=== PATIENT | male | born 1985 | race Caucasian/White ===

== ENCOUNTER 2016-12-20 03:10 | Emergency (ER) | payer BC ==
[~2016-12-20] VITALS: Ht 180.3 cm; Wt 79.4 kg
[~2016-12-20 03:10] MED LIST: HYDROCODONE BIT1 T11 PO; Motrin,Rufen800 MG PO
[2016-12-20 03:36] LABS: BILIRUBIN NEGATIVE (NEGATIVE); BLOOD NEGATIVE (NEGATIVE); CLARITY CLEAR (CLEAR); COLOR YELLOW (YELLOW); GLUCOSE NEGATIVE (NEGATIVE); KETONE NEGATIVE (NEGATIVE); LEUKO ESTERASE NEGATIVE (NEGATIVE); NITRITE NEGATIVE (NEGATIVE); PROTEIN NEGATIVE (NEGATIVE); SPECIFIC GRAVITY 1.025 (1.005-1.030); UROBILINOGEN 0.2 E.U./dl (0.2-1.0)
[2016-12-20 03:42] LABS: BASO # 0.1 10*3/uL (0.0-0.1); EOS # 0.3 10*3/uL (0.0-0.4); EOS % 3.9 % (1.0-4.0); HEMATOCRIT 41.1 % (42.0-52.0); HEMOGLOBIN 14.2 g/dl (14.0-18.0); IG # 0.1 10*3/uL (0.0-0.1); LYMPH # 3.7 10*3/uL (1.3-4.4); LYMPH % 44.9 % (27.0-41.0); MEAN CORPUSCULAR HGB 28.7 pg (27.0-31.0); MEAN CORPUSCULAR HGB CONC 34.5 g/dl (33.0-37.0); MONO # 0.5 10*3/uL (0.1-1.0); MONO % 6.6 % (3.0-9.0); NEUT # 3.5 10*3/uL (2.3-7.9); PLATELET COUNT AUTOMATED 260 10*3/uL (130-400); RED BLOOD COUNT 4.95 10*6/uL (4.50-5.90); RED CELL DISTRI WIDTH 12.6 % (0-14.5); WHITE BLOOD COUNT 8.2 10*3/uL (4.8-10.8)
[2016-12-20 03:43] LABS: URINE REFLEX COMMENT NO (NO)
[2016-12-20 03:52] LABS: BUN 15 mg/dl (7-24); CARBON DIOXIDE 31 mmol/L (21-32); CHLORIDE 103 mmol/L (98-107); EST GLOM FILT AFRICAN AMERICAN > 60 ml/min; GLUCOSE 95 mg/dL (65-99); POTASSIUM 4.6 mmol/L (3.5-5.1); SODIUM 138 mmol/L (136-145)
[2016-12-20 04:06] LABS: C-REACTIVE PROTEIN < 0.29 MG/DL (0-0.3)
[2016-12-20] MEDS ORDERED: ZOFRAN ODT4 MG SL ×2 (04:23→04:25)
[2016-12-20] MEDS ORDERED: NORCO 5-325 TA1 EACH PO ×3 (04:23→04:25)
== END 2016-12-20 04:49 | disposition home or self-care (01) ==
LOC: ED 03:10
PROVIDERS: Emergency Medicine Emergency Medical Services
DX: N20.0 Calculus of kidney (principal); N23 Unspecified renal colic; Z87.442 Personal history of urinary calculi

== ENCOUNTER 2018-08-22 12:39 | Emergency (ER) | payer BC ==
[~2018-08-22] VITALS: Ht 154.9 cm; Wt 90.7 kg
[~2018-08-22 12:39] MED LIST changes: +NORCO 5-325 TA1 EACH PO; +ZOFRAN ODT4 MG SL
[2018-08-22] MEDS ORDERED: KEFLEX500 M1 PO (14:07)
[2018-08-22] MEDS ORDERED: NORCO 10-325 T1 EACH PO (14:14)
== END 2018-08-22 14:37 | disposition home or self-care (01) ==
LOC: ED 12:39
DX: S61.241A Puncture wound with foreign body of left index finger without damage to nail, initial encounter (principal); W29.4XXA Contact with nail gun, initial encounter; Y93.89 Activity, other specified; Y92.098 Other place in other non-institutional residence as the place of occurrence of the external cause; Y99.9 Unspecified external cause status

== ENCOUNTER 2021-01-30 16:19 | Emergency (ER) | payer OTHER ==
[~2021-01-30] VITALS: Wt 97.5 kg
[~2021-01-30 16:19] MED LIST changes: +KEFLEX500 M1 PO; +NORCO 10-325 T1 EACH PO
== END 2021-01-30 17:33 | disposition left against medical advice (07) ==
LOC: ED 16:19
DX: U07.1 COVID-19 (principal); Z53.21 Procedure and treatment not carried out due to patient leaving prior to being seen by health care provider

== ENCOUNTER 2023-01-12 15:23 | Emergency (ER) | payer OTHER ==
[~2023-01-12] VITALS: Wt 104.3 kg
[2023-01-12 15:55] LABS: BASO # 0.1 10*3/uL (0.0-0.1); EOS # 0.1 10*3/uL (0.0-0.4); EOS % 1.4 % (1.0-4.0); HEMATOCRIT 46.6 % (42.0-52.0); LYMPH # 2.3 10*3/uL (1.3-4.4); LYMPH % 23.2 % (27.0-41.0); MEAN CELL VOLUME 83.1 fl (80.0-94.0); MEAN CORPUSCULAR HGB 28.5 pg (27.0-31.0); MEAN CORPUSCULAR HGB CONC 34.3 g/dl (33.0-37.0); MEAN PLATELET VOLUME 9.6 fl (9.6-12.3); MONO # 0.5 10*3/uL (0.1-1.0); NEUT # 6.7 10*3/uL (2.3-7.9); NEUT % 68.3 % (47.0-73.0); PLATELET COUNT AUTOMATED 429 10*3/uL (130-400); RED BLOOD COUNT 5.61 10*6/uL (4.50-5.90); RED CELL DISTRI WIDTH 12.8 % (0-14.5); WHITE BLOOD COUNT 9.8 10*3/uL (4.8-10.8)
[2023-01-12 16:16] LABS: ALKALINE PHOSPHATASE 94 U/L (46-116); BUN 12 mg/dl (9-23); CHLORIDE 103 mmol/L (98-107); LIPASE 38 U/L (12-53); POTASSIUM 4.2 mmol/L (3.4-5.1); SGPT/ALT 29 U/L (10-49); TOTAL PROTEIN 7.5 gm/dL (6.0-8.0)
[2023-01-12 19:30] LABS: BILIRUBIN Negative (Negative); BLOOD 2+ (Negative); CLARITY Clear (Clear); COLOR Yellow (Yellow); GLUCOSE Negative (Negative); KETONE Trace (Negative); LEUKO ESTERASE Negative (Negative); NITRITE Negative (Negative); PH 5.5 (4.5-8.0)
[2023-01-12] MEDS ORDERED: HYDROCODONE-AC1 EAC1 PO (19:44)
[2023-01-12] MEDS ORDERED: FLOMAX0.4 MG PO (19:44)
[2023-01-12 19:45] LABS: BACTERIA 1+; RBC 16-20 rbc/hpf (0-2)
== END 2023-01-12 20:10 | disposition home or self-care (01) ==
LOC: ED 15:23
PROVIDERS: Emergency Medicine
DX: N13.2 Hydronephrosis with renal and ureteral calculous obstruction (principal); R11.2 Nausea with vomiting, unspecified